=== PATIENT | male | born 1995 | race Two or more races ===

== ENCOUNTER 2022-03-26 23:01 | Emergency (ER) | payer MEDICAID ==
[~2022-03-26] VITALS: Ht 175.3 cm; Wt 82.0 kg
[2022-03-27 00:44] VITALS: BP 125/89
== END 2022-03-27 02:54 | disposition left against medical advice (07) ==
LOC: ER 23:01
DX: R51.9 Headache, unspecified (principal); Z20.822 Contact with and (suspected) exposure to COVID-19; Z53.21 Procedure and treatment not carried out due to patient leaving prior to being seen by health care provider
CPT/HCPCS: 36415; 71045

== ENCOUNTER 2023-02-08 16:33 | Emergency (ER) | payer MEDICAID, OTHER ==
[~2023-02-08] VITALS: Ht 172.7 cm; Wt 82.1 kg
[2023-02-08] MEDS ORDERED: IBU600T PO (20:15)
[2023-02-08] MEDS ORDERED: SILVER SULFADIAZINE 1 % TOPICAL CREAM 50GM TOP ONE (20:15)
[2023-02-08] MEDS ORDERED: TETANUS-DIPTH-ACEL PERTUSSIS 0.5ML SYR Tdap IM ONE (20:15)
[2023-02-08] MEDS ORDERED: HYDROcodone-ACET 5/325MG TAB PO ONE (20:15)
[2023-02-08] MEDS ORDERED: MUPI2OIN2 EX (20:15)
[2023-02-08] MEDS ORDERED: CEPHALEXIN 250 MG CAP PO ONE (20:15)
[2023-02-08] MEDS ORDERED: CEPH500C PO (20:15)
[2023-02-08 21:50] VITALS: BP 132/97
== END 2023-02-08 22:30 | disposition home or self-care (01) ==
LOC: ER 16:33
DX: T23.251A Burn of second degree of right palm, initial encounter (principal); T31.0 Burns involving less than 10% of body surface; Y27.8XXA Contact with other hot objects, undetermined intent, initial encounter; Y93.89 Activity, other specified; Y92.89 Other specified places as the place of occurrence of the external cause; Y99.0 Civilian activity done for income or pay
CPT/HCPCS: 16000; 90471; 90715